=== PATIENT | male | born 1955 | race Caucasian/White ===

== ENCOUNTER → 2018-10-18 | Outpatient (CLI) | payer OTHER | LOC: FIMAGING 10:47 | PROVIDERS: ATTEND Orthopaedic Surgery | DX: Z01.818 Encounter for other preprocedural examination (principal); M17.11 Unilateral primary osteoarthritis, right knee ==

== ENCOUNTER 2018-11-09 05:54 | Observation (INO) | payer OTHER ==
[2018-11-09] MEDS ORDERED: ROPIVACAINE 0.2% 80 MG, EPINEPHrine 0.2 MG, KETOROLAC TROMETHAMINE 30 MG in SYRINGE 0 ML IU ONE (06:00)
[2018-11-09] MEDS ORDERED: TRANEXAMIC ACID 3,000 MG in NS (SYRINGE) 50 ML IRR ONE (06:00)
[2018-11-09] MEDS ORDERED: ceFAZolin 2 GM/DEXTROSE 100 ML IV ONE (06:05)
[2018-11-09] MEDS ORDERED: FAMOTIDINE 20 MG TAB PO ONE (06:05)
[2018-11-09] MEDS ORDERED: ACETAMINOPHEN 325 MG TAB PO ONE (06:05)
[2018-11-09] MEDS ORDERED: DEXAMETHASONE 4 MG/ML VIAL IVP ONE (06:05)
[2018-11-09] MEDS ORDERED: LR 1,000 ML IV ONE (06:09)
--- NOTE | 2018-11-09 06:17 | PDHPUP ---
History & Physical Update H&P update statement: This history and physical update is based on an assessment of the patient which was completed after admission or registration (within 24 hours), but prior to the surgery/procedure. H&P update: H&P reviewed & patient examined, no change in patient's condition since H&P completed
[2018-11-09] MEDS ORDERED: MIDAZOLAM 2 MG/2 ML VIAL IVP ONE (06:44)
[2018-11-09] MEDS ORDERED: TRANEXAMIC ACID 3,000 MG/50 ML BAG IRR ONE (06:45)
--- NOTE | 2018-11-09 06:45 | PDANEPAE ---
ANE Past Medical History - Cardiovascular History Hx Hypertension: No Hx Arrhythmias: No Hx Chest Pain: No Hx Coronary Artery / Peripheral Vascular Disease: No Hx CHF / Valvular Disease: No Hx Palpitations: No - Pulmonary History Hx COPD: No Hx Asthma/Reactive Airway Disease: No Hx Recent Upper Respiratory Infection: No Hx Oxygen in Use at Home: No Hx Sleep Apnea: No Sleep Apnea Screening Result - Last Documented: Negative - Neurologic History Hx Cerebrovascular Accident: No Hx Seizures: No Hx Dementia: No - Endocrine History Hx Diabetes: No - Renal History Hx Renal Disorders: Yes Renal History Comment: nocturia- melouk is following no issues with prostate - Liver History Hx Hepatic Disorders: No - Neurological & Psychiatric Hx Hx Neurological and Psychiatric Disorders: No - Cancer History Hx Cancer: No - Congenital Disorder History Hx Congenital Disorders: No - GI History Hx Gastrointestinal Disorders: No - Other Health History Other Health History: wears glasses for reading and driving only - Chronic Pain History Chronic Pain: Yes (right knee, lower back) - Surgical History Prior Surgeries: 09/19/13 left TKA with [place]. 2012 acl reconstruction prior to knee replacement. 04/2013 scope to right knee. bilateral knee scopes - several c5-6 fusion 2001. elbow surgery ANE Review of Systems Review of Systems: - Exercise capacity METS (RN): 4 METS ANE Patient History - Allergies Allergies/Adverse Reactions: No Known Allergies Allergy (Verified 10/28/18 10:26) - Home Medications Home Medications: Acetaminophen [Tylenol 325mg (*)] 325 mg PO DAILY PRN 10/26/18 [Last Taken 1 Week Ago ~11/02/18] Cholecalciferol Vit D3 [Vitamin D3 (*)] 1,000 units PO DAILY 10/26/18 [Last Taken 10/26/18] Ferrous Sulfate [Ferrous Sulf 325 MG (*)] 325 mg PO DAILY 10/26/18 [Last Taken 11/09/18 03:30] Multivitamins [Multivitamin (*)] 1 each PO DAILY 10/26/18 [Last Taken 10/26/18] - NPO status NPO Since - Liquids (Date): 11/09/18 NPO Since - Liquids (Time): 04:00 NPO Since - Solids (Date): 11/08/18 NPO Since - Solids (Time): 20:00 - Smoking Hx Smoking Status: Former smoker - Family Anes Hx Family Hx Anesthesia Complications: none ANE Labs/Vital Signs - Vital Signs Blood Pressure: 119/82 Heart Rate: 57 Respiratory Rate: 18 O2 Sat (%): 97 Height: 172.72 cm Weight: 77.111 kg ANE Physical Exam - Airway Neck exam: FROM Mallampati Score: Class 1 Mouth exam: normal dental/mouth exam - Pulmonary Pulmonary: clear to auscultation - Cardiovascular Cardiovascular: regular rate and rhythym - ASA Status ASA Status: II ANE Anesthesia Plan Anesthesia Plan: spinal Regional Anesthesia: adductor canal FNB
[2018-11-09] MEDS ORDERED: PROPOFOL/EMULSION 500 MG/50 ML BOTTLE IV ONE (06:56)
[2018-11-09] MEDS ORDERED: BUPIVACAINE/DEXTROSE 7.5MG/ML 2 ML SPINAL AMP SP ONE (07:06)
[2018-11-09] MEDS ORDERED: CYCLOBENZAPRINE 10 MG TAB PO PRN (08:10)
[2018-11-09] MEDS ORDERED: METOCLOPRAMIDE 10 MG/2 ML VIAL IVP PRN ×2 (08:10→08:15)
[2018-11-09] MEDS ORDERED: PROMETHAZINE HCL 25 MG/ML INJ IVP PRN ×2 (08:10→08:15)
[2018-11-09] MEDS ORDERED: BISACODYL 10 MG SUPP PR PRN (08:10)
[2018-11-09] MEDS ORDERED: diphenhydrAMINE 25 MG CAP PO PRN (08:10)
[2018-11-09] MEDS ORDERED: MAGNESIUM HYDROXIDE 30 ML UDCUP PO PRN (08:10)
[2018-11-09] MEDS ORDERED: ONDANSETRON DISINTEGRATING 4 MG TAB PO PRN (08:10)
[2018-11-09] MEDS ORDERED: ONDANSETRON 4 MG/2 ML VIAL IVP PRN ×2 (08:10→08:15)
[2018-11-09] MEDS ORDERED: TEMAZEPAM 15 MG CAP PO PRN (08:10)
[2018-11-09] MEDS ORDERED: oxyCODONE IR 5 MG TAB PO PRN ×2 (08:10→08:15)
[2018-11-09] MEDS ORDERED: POLYETHYLENE GLYCOL 3350 17 GM PKT PO PRN (08:10)
[2018-11-09] MEDS ORDERED: PROMETHAZINE HCL 25 MG SUPPR PR PRN (08:10)
[2018-11-09] MEDS ORDERED: DIPHENOXYLATE/ATROPINE LOMOTIL 1 TAB PO PRN (08:10)
[2018-11-09] MEDS ORDERED: LACTULOSE 20 GM/30 ML UDCUP PO PRN (08:10)
--- NOTE | 2018-11-09 08:12 | POSTOPPROG ---
Post Op Note Date of Operation: 11/09/18 Surgeon: Marielle Ordoñez Mc Kay Stitcher: Brittanie Dash PA-C Anesthesiologist: dr. nguyen Anesthesia: Spinal, Other (Specify) (adductor canal block) Pre-op Diagnosis: right knee OA Post-op Diagnosis: same Indication: right knee pain Procedure: R TKA robot assisted Findings: severe knee OA Inf/Abcess present in the surg proc area at time of surgery?: No EBL: 50-100
[2018-11-09] MEDS ORDERED: ROPIVACAINE HCL 150 MG/30 ML INJ ONE (08:13)
[2018-11-09] MEDS ORDERED: DEXAMETHASONE 4 MG/ML VIAL IVP PRN (08:15)
[2018-11-09] MEDS ORDERED: NALOXONE HCL 0.4 MG/ML INJ IVP PRN (08:15)
[2018-11-09] MEDS ORDERED: HYDROmorphONE/DILAUDID 2 MG/ML INJ IVP PRN (08:15)
[2018-11-09] MEDS ORDERED: ALBUTEROL 3 ML DEYVIAL IH PRN (08:15)
[2018-11-09] MEDS ORDERED: ACETAMINOPHEN 500 MG TAB PO PRN (08:15)
[2018-11-09] MEDS ORDERED: LR 500 ML IV PRN (08:15)
[2018-11-09] MEDS ORDERED: HYDROCODONE/APAP 5/325 TAB PO PRN (08:15)
[2018-11-09] MEDS ORDERED: MEPERIDINE 25 MG/0.5 ML AMP IVP PRN (08:15)
[2018-11-09] MEDS ORDERED: DIAZEPAM 5 MG/ML 1 ML SYR IVP PRN (08:15)
[2018-11-09] MEDS ORDERED: fentaNYL 100 MCG/2 ML INJ IVP PRN (08:15)
--- NOTE | 2018-11-09 08:23 | POSTANESTH ---
Post Anesthetic Evaluation Cardiovascular Status: Normal, Stable Respiratory Status: Normal, Stable Level of Consciousness/Mental Status: Can Participate in Eval Pain Control: Adequate, Prn Tx Ordered Nausea/Vomiting Control: Adequate, Prn Tx Ordered Complications Possibly Related to Anesthesia: None Noted
[2018-11-09] MEDS ORDERED: PROPOFOL 200 MG/20 ML VIAL ONE (08:28)
[2018-11-09] MEDS ORDERED: LR 1,000 ML IV SCH (08:30)
[2018-11-09] MEDS ORDERED: SENNOSIDES/DOCUSATE SODIUM TAB PO SCH (09:00)
[2018-11-09] MEDS ORDERED: ACETAMINOPHEN 325 MG TAB PO SCH (12:00)
[2018-11-09 13:45] VITALS: BP 121/79
[2018-11-09] MEDS ORDERED: ceFAZolin 2 GM/DEXTROSE 100 ML IV SCH (15:00)
[2018-11-09] MEDS ORDERED: ASPIRIN 81 MG CHEWABLE TAB PO SCH (21:00)
[2018-11-09] MEDS ORDERED: FAMOTIDINE 20 MG TAB PO SCH (21:00)
--- NOTE | 2018-11-10 09:17 | GDS ---
[f rep st] DISCHARGE SUMMARY ADMISSION DIAGNOSIS: Right knee osteoarthritis. DISCHARGE DIAGNOSIS: Right knee osteoarthritis. PROCEDURE: Right total knee arthroplasty, robotic assisted. VTE PROPHYLAXIS: Recommend aspirin 81 mg twice daily for 4 weeks. BRIEF DESCRIPTION OF HOSPITAL STAY: Patient was admitted for an elective joint arthroplasty. The pa johanny tolerated the procedure well and has passed physical therapy. The patient was given appropriat e antibiotic prophylaxis and venous thromboembolism prophylaxis. The patient's pain was well control led on oral pain medication, patient was holding down food, and had urinated. Decision was made to d ischarge the patient. The patient was given post-operative prescriptions pre-operatively. PLAN: To follow up as scheduled Dr. Ordoñez's office on November 28 at 12:45 p.m. /[id number]/MODL
--- NOTE | 2018-11-10 09:32 | GOP ---
[f rep st] OPERATIVE REPORT DATE OF OPERATION: 11/09/2018 SURGEON: Mena Ordoñez MD REINSURANCE CLERK: 1. Katt Ordoñez, PAC. 2. RANDA Jett. ANESTHESIA: Spinal. PREOPERATIVE DIAGNOSIS: Right knee osteoarthritis. POSTOPERATIVE DIAGNOSIS: Right knee osteoarthritis. PROCEDURE PERFORMED: Right total knee arthroplasty with computer navigation, robotic assist. FINDINGS: ESTIMATED BLOOD LOSS: 30 cc. INDICATIONS: The patient is a 63-year-old male with severe and progressive pain and deformity of the right knee unresponsive to conservative care. The risks and benefits of surgical intervention were explained in detail. DESCRIPTION OF PROCEDURE: The patient was brought to the operative room and placed on the table in t he supine position. Spinal anesthesia was induced without difficulty. A pneumatic tourniquet was appl ied about the right proximal thigh, and the leg was prepped and draped in a sterile fashion. The leg caal was applied. After exsanguination by elevation the tourniquet was inflated to 250 mmHg. Incision was made anterior medial from the tibial tuberosity to a point 2 cm proximal to the superior pole of the patella. Medial parapatellar arthrotomy was carried out from the superior pole of the pa tella and posteriorly in line with the fibers of the Type II VMO. The medial collateral ligament was elevated and the infrapatellar fat pad was resected. The patella was everted and the articular surface was excised. A 35 mm patellar button was placed. Attention was turned first to the distal aspect of the femur. After exposure of the femur, 2 half pi ns were placed for fixation of the femoral array. In a similar fashion, 2 pins were placed anteromed ial on the tibia for fixation of the tibial array. External land marking and registration of the hip center was performed without difficulty. Internal femoral and tibial registration was carried out w ithout difficulty and the femoral and tibial checkpoints were placed and verified for accuracy. Attention was turned to the femur. The foot print for the size 5 femoral component was cut with the saw using the Testif robotic system and verified for accuracy against the CT based plan. In a similar f ashion, the saw was used to cut the footprint for the size 6 tibial component using the NILSON system an d verified for accuracy against the CT based plan. The tibial articular surface was excised without d ifficulty, followed by the intercondylar box cut. The knee was extended and the remnants of the medial and lateral meniscus were excised. The posterior capsule was injected with ropivacaine, epinephrine and Toradol. A size 6 tibial tray was positioned . Trial reduction was then carried out. There was excellent range of motion, alignment, and stability using the 6 x 9 mm polyethylene. All trials were then removed. The joint was thoroughly irrigated and carefully dried. The press-fit c omponents were implanted. The permanent 6 x 9 mm polyethylene was placed without difficulty. The tourniquet was deflated and all bleeders were coagulated. The wound was thoroughly irrigated and closed using interrupted sutures of 2-0 Vicryl for the joint capsule. The subcu was closed with 3-0 V icryl and the skin with 4-0 Monocryl. Dermabond and Steri-Strips were applied followed by a compress regi dressing. The patient was then moved from the operating room to the recovery room in good conditi on, having tolerated the procedure well. PATHOLOGY: Severe medial and patellofemoral osteoarthritis. /[id number]/MODL
== END 2018-11-09 15:57 | disposition home or self-care (01) ==
LOC: F3N 05:54 → PREINTOOBSV 10:05 → F3N 10:55
PROVIDERS: ADMIT Orthopaedic Surgery; ATTEND Orthopaedic Surgery
DX: M17.11 Unilateral primary osteoarthritis, right knee (principal); Z87.891 Personal history of nicotine dependence; Z96.652 Presence of left artificial knee joint
CPT/HCPCS: 27447; 73560; 97161; G0378; J0171; J0690; J1100; J1885; J2250; J2704; J2795